=== PATIENT | female | born 1995 | race Caucasian/White ===

== ENCOUNTER 2017-12-25 14:07 | Inpatient (IN) | payer BC ==
[2017-12-25] MEDS ORDERED: cefTRIAXone\\ROCEPHIN 2 GM VIAL ONE (15:19)
[2017-12-25 15:36] LABS: Mean Corpuscular HGB CONC 33.3 g/dL (32.0-36.0); Mean Corpuscular Hemoglobin 32.3 pg (27.0-31.0); Mean Corpuscular Volume 97.1 fL (78.0-98.0); Mean Platelet Volume 8.1 fL (7.4-10.4); Platelet Count 217 thou/uL (130-400); RBC Distribution Width 10.8 % (11.5-14.5); Red Blood Cell (RBC) Count 4.01 mill/uL (4.20-5.40); White Blood Cell (WBC) Count 24.6 thou/uL (4.8-10.8)
[2017-12-25 15:36] LABS: Bilirubin Negative (Negative); Blood, Urine Small (Negative); Clarity CLOUDY (Clear); Glucose, Urine (Dipstick) Negative (Negative); Leukocyte Small (Negative); Nitrite Negative (Negative); Protein, Urine (Dipstick) 100 mg/dL (Neg-Trace); Specific Gravity, Urine 1.023 (1.002-1.036); pH, Urine 5.5 (5.0-9.0)
[2017-12-25 15:39] LABS: Bacteria/HPF Rare-Few HPF (None Seen); Hyaline Casts/LPF 7-10 HYALINE CAST LPF (0-3 Hyaline); Pathc Cast-AUWi Flag 1.01 (0-2.49); WBC/HPF 21-50 HPF (0-3)
[2017-12-25 15:54] LABS: Band 23 % (5-11); Lymphocytes 5 % (21-51); MDiff Complete? YES; Metamyelocyte 2 % (0-0); Monocytes 6 % (0-10); Neutrophil 64 % (42-75); PLT Morphology Comment Appears Adequate; RBC Morphology Normal
[2017-12-25 15:58] LABS: ALT (SGPT) Less than 7 U/L (8-55); AST (SGOT) 11 U/L (5-34); Albumin 4.2 g/dL (3.5-5.0); Alkaline Phosphatase 82 U/L (40-150); Anion Gap 16 mmol/L (10-20); BUN (Urea Nitrogen) 10 mg/dL (7.0-18.7); Bilirubin, Total 0.6 mg/dL (0.2-1.2); Calc. Creatinine Clearance 0 mL/min (70-130); Calcium 9.7 mg/dL (7.8-10.44); Carbon Dioxide 22 mmol/L (22-29); Chloride 100 mmol/L (98-107); Estimated GFR-MDRD 82; Globulin 3.8 g/dL (2.4-3.5); Glucose 108 mg/dL (70-105); Potassium 3.5 mmol/L (3.5-5.1); Sodium 134 mmol/L (136-145)
[2017-12-25] MEDS ORDERED: Acetaminophen 500 MG TAB ONE (16:12)
[2017-12-25 16:24] LABS: Pregnancy Test - Urine (BHCG) Negative (Negative); Pregu Control Background? CLEAR/WHITE (CLR/WHITE); Pregu Control Bar Appear? YES (CONTROL BAR); Specific Gravity 1.023 (1.002-1.036)
--- NOTE | 2017-12-25 17:12 | CT ---
CT ABDOMEN AND PELVIS WITHOUT CONTRAST: 12/25/17 HISTORY: Right sided flank pain. FINDINGS: Absence of oral and IV contrast reduces the sensitivity for the exam particularly for evaluation of s olid organs and bowel. The lung bases are clear. No free air or free fluid is seen in the abdomen or pelvis. No calcified ga llstones are identified. There are a couple of punctate calculi in the inferior pole of the left kidney. No calculi are seen i n the right kidney, either ureter or urinary bladder. No hydroureteronephrosis is noted on either jessie e. The appendix is normal. The uterus and ovaries are present. No acute osseous abnormalities are see n. IMPRESSION: Punctate nonobstructing left renal calculi. POS: [facility]
[2017-12-25] MEDS ORDERED: Senokot S 8.6-50 MG TAB PO PRN (18:23)
[2017-12-25 20:00] VITALS: BMI 22.8
[2017-12-25] MEDS: Sodium Chloride 0.9% 1,000 ML IV SCH (20:10)
[2017-12-25] MEDS: Famotidine 20 MG TAB PO SCH (20:59)
[2017-12-25] MEDS ORDERED: Vancomycin HCl 1.25 GM in Sodium Chloride 0.9% 250 ML 250 ML IVPB SCH (21:00)
[2017-12-25] MEDS: HYDROcodone/Acetaminophen 5/325 mg Tablet PO PRN (21:40)
[2017-12-26] MEDS: Acetaminophen 325 MG TAB PO PRN ×2 (01:02→15:27)
--- NOTE | 2017-12-26 03:16 | HP ---
REASON FOR ADMISSION: Sepsis, right-sided pyelonephritis. HISTORY OF PRESENT ILLNESS: Patient gives history of having very high fever for the last 3 days. It was 103 degrees. She has had a right lumbar area pain , which was 4/10 in intensity and was colicky in nature. No radiation of this pain. It would come and go for 15-20 minutes; for now, it has remained stable and is always there. She also developed headache which is frontal headache. She has been vomiting and feeling nauseated. She threw up four times yesterday and 3 times today already. Patient has been waking up soaking wet because of fever. She went to see her primary care physician at [facility] yesterday. She was given prescription for an antibiotic for urinary tract infection and was asked to come back and see her again in 24 hours if she is not feeling better. She went again to see her this morning and was asked to go to the emergency room. On arrival here, patient had a fever of 103, had a white count of 24,000 with 23% bands. PAST MEDICAL AND SURGICAL HISTORY: History of prior lithotripsies x2 in 2010, 2012 in [facility]. No other medical history or surgical history. CURRENT MEDICATIONS: She took 1 tablet of her antibiotic yesterday and Tylenol p.r.n. ALLERGIES: No known drug allergies. PERSONAL HISTORY: Patient uses vape. Does not abuse alcohol or drugs. She works at [employer]. FAMILY HISTORY: Both parents are healthy. Power of commercial real estate attorney is her mom. CODE STATUS: FULL. Last menstrual period was on 12/23. REVIEW OF SYSTEMS: The following complete review of systems was negative, unless otherwise mentioned in the HPI or below: Constitutional: Weight loss or gain, ability to conduct usual activities. Skin: Rash, itching. Eyes: Double vision, pain. ENT/Mouth: Nose bleeding, neck stiffness, pain, tenderness. Cardiovascular: Palpitations, dyspnea on exertion, orthopnea. Respiratory: Shortness of breath, wheezing, cough, hemoptysis, fever or night sweats. Gastrointestinal: Poor appetite, abdominal pain, heartburn, nausea, vomiting, constipation, or diarrhea. Genitourinary: Urgency, frequency, dysuria, nocturia. Musculoskeletal: Pain, swelling. Neurologic/Psychiatric: Anxiety, depression. Allergy/Immunologic: Skin rash, bleeding tendency. PHYSICAL EXAMINATION: GENERAL: Patient is a 22-year-old female who is currently not in any acute distress. VITAL SIGNS: Blood pressure 138/80, pulse 62 per minute, respiratory rate 18 per minute, temperature 99.3 degrees Fahrenheit, saturating 100% on room air. NECK: Supple, no elevated JVD. HEENT: Eyes, extraocular muscles intact. Pupils are reacting to light. Oral cavity, mucous membranes are dry. No exudates or congestion. CARDIOVASCULAR: S1, S2 heard. Regular rhythm. RESPIRATORY: Air entry 2+ bilateral. No rales or rhonchi. ABDOMEN: Soft, bowel sounds heard. There is tenderness in the right lumbar area. No rigidity or guarding. EXTREMITIES: No peripheral edema or calf tenderness. VASCULAR SYSTEM: Peripheral pulses 2+ bilateral, no ischemic ulcerations or gangrene. CENTRAL NERVOUS SYSTEM: No gross focal deficits noted. Patient is alert, awake , oriented well. PSYCHIATRIC: Patient's mood is euthymic. No hallucinations or delusions. LABORATORY AND X-RAY FINDINGS: CT of the abdomen and pelvis without contrast done showed nonobstructing left renal calculi. White count of 24, H&H 13 and 39 , platelet count 217 with 64% neutrophils and 23% bands. Electrolytes are stable. BUN 10, creatinine 0.8, glucose 108. Liver enzymes within normal limits. Albumin is 4.2. UA shows small leukocyte esterase, 21-50 wbcs', rare bacteria. CLINICAL IMPRESSION AND PLAN: Patient will be admitted to medical floor for sepsis and urinary tract infection. She will be on Rocephin and vancomycin for now. Blood and urine cultures have been obtained in the ER. Patient will be hydrated with normal saline at 100 mL per hour. She has received 2 liters IV fluid in the ER. We will follow up on the cultures. We will continue to closely monitor her on medical floor. [facility]
[2017-12-26] MEDS: Sodium Chloride 0.9% 1,000 ML IV SCH ×4 (04:30→20:49)
[2017-12-26 05:28] LABS: Anion Gap 10 mmol/L (10-20); BUN (Urea Nitrogen) 6 mg/dL (7.0-18.7); Calc. Creatinine Clearance 121 mL/min (70-130); Calcium 8.4 mg/dL (7.8-10.44); Carbon Dioxide 21 mmol/L (22-29); Chloride 106 mmol/L (98-107); Estimated GFR-MDRD Greater than 90; Glucose 93 mg/dL (70-105); Potassium 3.2 mmol/L (3.5-5.1); Sodium 134 mmol/L (136-145)
[2017-12-26 07:49] LABS: Band 15 % (5-11); Hemoglobin 10.4 g/dL (12.0-16.0); Lymphocytes 2 % (21-51); MDiff Complete? YES; Mean Corpuscular HGB CONC 32.8 g/dL (32.0-36.0); Mean Corpuscular Hemoglobin 31.9 pg (27.0-31.0); Mean Corpuscular Volume 97.2 fL (78.0-98.0); Mean Platelet Volume 8.4 fL (7.4-10.4); Monocytes 14 % (0-10); Neutrophil 67 % (42-75); PLT Morphology Comment Appears Adequate; Platelet Count 181 thou/uL (130-400); RBC Distribution Width 10.8 % (11.5-14.5); RBC Morphology Normal; Reactive Lymphocytes 2 % (0-10); Red Blood Cell (RBC) Count 3.25 mill/uL (4.20-5.40); White Blood Cell (WBC) Count 22.5 thou/uL (4.8-10.8)
[2017-12-26] MEDS: Enoxaparin Sodium 40 MG/0.4 ML SYRINGE SC SCH (07:53)
[2017-12-26] MEDS: HYDROcodone/Acetaminophen 5/325 mg Tablet PO PRN ×3 (07:54→20:59)
[2017-12-26] MEDS: Famotidine 20 MG TAB PO SCH ×2 (07:55→20:52)
[2017-12-26] MEDS: Vancomycin HCl 1 GM in Premix Bag 1 BAG IVPB SCH ×2 (07:56→20:47)
--- NOTE | 2017-12-26 14:05 | PDOC.PN ---
- Subjective Encounter Start Date: 12/26/17 Encounter Start Time: 13:00 Subjective: abd pain is better, no nausea -: is tolerating oral diet - Objective Resuscitation Status: Resuscitation Status FULL:Full Resuscitation MAR Reviewed: Yes Vital Signs & Weight: Vital Signs (12 hours) Temp Pulse Resp BP BP Pulse Ox 12/26/17 08:00 97.6 F 51 L 18 166/84 H 94 L 12/26/17 03:48 100.1 F H 102 H 90/56 L 97 12/26/17 02:08 103 F H Weight Weight 137 lb 1 oz Result Diagrams: 12/26/17 04:50 12/26/17 04:50 Phys Exam - Physical Examination HEENT: PERRLA, moist MMs Neck: no JVD, supple Respiratory: no wheezing, no rales Cardiovascular: RRR, no significant murmur Gastrointestinal: soft, non-tender, positive bowel sounds Musculoskeletal: no edema, pulses present Neurological: non-focal, moves all 4 limbs Psychiatric: normal affect, A&O x 3 Dx/Plan (1) Sepsis Code(s): A41.9 - SEPSIS, UNSPECIFIED ORGANISM Status: Acute Qualifiers: Sepsis type: sepsis due to unspecified organism Qualified Code(s): A41.9 - Sepsis, unspecified organism (2) UTI (urinary tract infection) Status: Acute Qualifiers: Urinary tract infection type: acute cystitis Hematuria presence: without hematuria Qualified Code(s): N30.00 - Acute cystitis without hematuria (3) h/o nephrolithiasis Status: Chronic Comment: prior lithotripsy - Plan tmax of 103 last 24hrs -: continue ceftriaxone and vanc, iv fluids -: await urine cs, to ambulate as tolerated -: prelim blood cs are -ve -: wbc is still around 20k * . Review of Systems - Medications/Allergies Allergies/Adverse Reactions: Allergies Allergy/AdvReac Type Severity Reaction Status Date / Time No Known Drug Allergies Allergy Verified 12/25/17 20:01 Medications: Current Medications Acetaminophen (Tylenol) 650 mg PO Q4H PRN PRN Reason: Headache/Fever/Mild Pain (1-3) Last Admin: 12/26/17 01:02 Dose: 650 mg Hydrocodone Bitart/Acetaminophen ([place] 5/325) 1 tab PO Q4H PRN PRN Reason: Moderate Pain (4-6) Last Admin: 12/26/17 12:29 Dose: 1 tab Enoxaparin Sodium (Lovenox) 40 mg SC 0900 [facility] Last Admin: 12/26/17 07:53 Dose: 40 mg Famotidine (Pepcid) 20 mg PO BID [facility] Last Admin: 12/26/17 07:55 Dose: 20 mg Ceftriaxone Sodium 2 gm/ (Sodium Chloride) 100 mls @ 200 mls/hr IVPB Q24HR DON Sodium Chloride (Normal Saline 0.9%) 1,000 mls @ 100 mls/hr IV .Q10H [facility] Last Admin: 12/26/17 07:57 Dose: 1,000 mls Vancomycin HCl 1 gm/ Device 200 mls @ 200 mls/hr IVPB Q12HR [facility] Last Admin: 12/26/17 07:56 Dose: 200 mls Miscellaneous Medication (Pharmacy To Dose) 1 each IVPB PRN PRN PRN Reason: Pharmacy to dose Senna/Docusate Sodium (Senokot S) 2 tab PO BIDPRN PRN PRN Reason: Constipation Sodium Chloride (Flush - Normal Saline) 10 ml IVF Q12HR [facility] Last Admin: 12/26/17 07:57 Dose: Not Given Sodium Chloride (Flush - Normal Saline) 10 ml IVF PRN PRN PRN Reason: Saline Flush
[2017-12-26] MEDS: cefTRIAXone\\ROCEPHIN 2 GM in Sodium Chloride 0.9% 100 ML IVPB SCH (15:29)
[2017-12-26] MEDS ORDERED: Ibuprofen 200 MG TAB PO PRN (17:50)
[2017-12-27 04:41] LABS: #Basophils 0.1 thou/uL (0.0-0.2); #Eosinphils 0.1 thou/uL (0.0-0.7); #Lymphocytes 1.8 thou/uL (1.20-3.40); #Monocytes 1.7 thou/uL (0.11-0.59); #Neutrophils 12.1 thou/uL (1.40-6.50); %Basophils 0.3 % (0.0-1.0); %Eosinophils 0.6 % (0.0-10.0); %Lymphocytes 11.2 % (21.0-51.0); %Monocytes 11.1 % (0.0-10.0); %Neutrophils 76.7 % (42.0-75.0); Hemoglobin 10.4 g/dL (12.0-16.0); Mean Corpuscular HGB CONC 33.8 g/dL (32.0-36.0); Mean Corpuscular Hemoglobin 32.9 pg (27.0-31.0); Mean Corpuscular Volume 97.2 fL (78.0-98.0); Mean Platelet Volume 8.4 fL (7.4-10.4); Platelet Count 187 thou/uL (130-400); RBC Distribution Width 11.1 % (11.5-14.5); Red Blood Cell (RBC) Count 3.16 mill/uL (4.20-5.40); White Blood Cell (WBC) Count 15.7 thou/uL (4.8-10.8)
[2017-12-27] MEDS: Acetaminophen 325 MG TAB PO PRN ×2 (08:11→15:13)
[2017-12-27] MEDS: Famotidine 20 MG TAB PO SCH ×2 (08:12→20:36)
[2017-12-27] MEDS: Enoxaparin Sodium 40 MG/0.4 ML SYRINGE SC SCH (08:17)
[2017-12-27 08:25] LABS: Vancomycin, Trough 6.8 ug/mL
--- NOTE | 2017-12-27 11:17 | PDOC.PN ---
- Subjective Encounter Start Date: 12/27/17 Encounter Start Time: 10:30 Subjective: feels better, is eating well -: amb in room - Objective Resuscitation Status: Resuscitation Status FULL:Full Resuscitation MAR Reviewed: Yes Vital Signs & Weight: Vital Signs (12 hours) Temp Pulse Resp BP Pulse Ox 12/27/17 08:00 100.4 F H 102 H 18 139/89 98 12/26/17 23:32 97.7 F Weight Admit Weight 137 lb 1 oz Weight 137 lb 1 oz I&O: 12/26/17 12/27/17 12/28/17 06:59 06:59 06:59 Intake Total 1680 Balance 1680 Result Diagrams: 12/27/17 03:52 12/26/17 04:50 Phys Exam - Physical Examination HEENT: PERRLA, moist MMs Neck: no JVD, supple Respiratory: no wheezing, no rales Cardiovascular: RRR, no significant murmur Gastrointestinal: soft, non-tender, positive bowel sounds Musculoskeletal: no edema, pulses present Neurological: non-focal, moves all 4 limbs Psychiatric: normal affect, A&O x 3 Dx/Plan (1) Sepsis Code(s): A41.9 - SEPSIS, UNSPECIFIED ORGANISM Status: Acute Qualifiers: Sepsis type: sepsis due to unspecified organism Qualified Code(s): A41.9 - Sepsis, unspecified organism (2) UTI (urinary tract infection) Status: Acute Qualifiers: Urinary tract infection type: acute cystitis Hematuria presence: without hematuria Qualified Code(s): N30.00 - Acute cystitis without hematuria (3) h/o nephrolithiasis Status: Chronic Comment: prior lithotripsy - Plan is on ceftriaxone -: dc iv fluids after current bag -: urine cs is contaminated -: no fever last 24hrs, wbc is down to 15k now and no bands -: dc plan in am on levaquin * . Review of Systems - Medications/Allergies Allergies/Adverse Reactions: Allergies Allergy/AdvReac Type Severity Reaction Status Date / Time No Known Drug Allergies Allergy Verified 12/25/17 20:01 Medications: Current Medications Acetaminophen (Tylenol) 650 mg PO Q4H PRN PRN Reason: Headache/Fever/Mild Pain (1-3) Last Admin: 12/27/17 08:11 Dose: 650 mg Hydrocodone Bitart/Acetaminophen ([place] 5/325) 1 tab PO Q4H PRN PRN Reason: Moderate Pain (4-6) Last Admin: 12/26/17 20:59 Dose: 1 tab Enoxaparin Sodium (Lovenox) 40 mg SC 0900 [facility] Last Admin: 12/27/17 08:17 Dose: Not Given Famotidine (Pepcid) 20 mg PO BID [facility] Last Admin: 12/27/17 08:12 Dose: 20 mg Ceftriaxone Sodium 2 gm/ (Sodium Chloride) 100 mls @ 200 mls/hr IVPB Q24HR [facility] Last Admin: 12/26/17 15:29 Dose: 100 mls Sodium Chloride (Normal Saline 0.9%) 1,000 mls @ 100 mls/hr IV .Q10H [facility] Last Admin: 12/26/17 20:49 Dose: 1,000 mls Ibuprofen (Motrin) 400 mg PO TID PRN PRN Reason: FEVER > 101 Last Admin: 12/26/17 18:01 Dose: 400 mg Senna/Docusate Sodium (Senokot S) 2 tab PO BIDPRN PRN PRN Reason: Constipation Sodium Chloride (Flush - Normal Saline) 10 ml IVF Q12HR [facility] Last Admin: 12/27/17 08:12 Dose: 10 ml Sodium Chloride (Flush - Normal Saline) 10 ml IVF PRN PRN PRN Reason: Saline Flush
[2017-12-27] MEDS: cefTRIAXone\\ROCEPHIN 2 GM in Sodium Chloride 0.9% 100 ML IVPB SCH (15:12)
[2017-12-27] MEDS: Sodium Chloride 0.9% 1,000 ML IV SCH (18:38)
[2017-12-27] MEDS ORDERED: Melatonin 3 MG TAB PO PRN (20:39)
[2017-12-28 00:24] VITALS: TEMP 98.2
[2017-12-28 06:03] LABS: Band 4 % (5-11); Eosinophils 1 % (0-10); Hemoglobin 11.5 g/dL (12.0-16.0); Lymphocytes 18 % (21-51); MDiff Complete? YES; Mean Corpuscular HGB CONC 33.9 g/dL (32.0-36.0); Mean Corpuscular Hemoglobin 32.7 pg (27.0-31.0); Mean Corpuscular Volume 96.4 fL (78.0-98.0); Mean Platelet Volume 8.8 fL (7.4-10.4); Monocytes 13 % (0-10); Neutrophil 64 % (42-75); PLT Morphology Comment Appears Adequate; Platelet Count 295 thou/uL (130-400); RBC Distribution Width 11.1 % (11.5-14.5); RBC Morphology Normal; Red Blood Cell (RBC) Count 3.52 mill/uL (4.20-5.40); White Blood Cell (WBC) Count 9.3 thou/uL (4.8-10.8)
[2017-12-28] MEDS: Enoxaparin Sodium 40 MG/0.4 ML SYRINGE SC SCH (08:30)
[2017-12-28] MEDS: Famotidine 20 MG TAB PO SCH (08:30)
[2017-12-28] MEDS: Acetaminophen 325 MG TAB PO PRN (08:33)
[2017-12-28 08:34] VITALS: BP 124/82
--- NOTE | 2017-12-28 12:28 | PDOC.PN ---
- Subjective Encounter Start Date: 12/28/17 Encounter Start Time: 08:30 Subjective: feels good, eating well, no fever or chills -: is amb in room - Objective Resuscitation Status: Resuscitation Status FULL:Full Resuscitation MAR Reviewed: Yes Vital Signs & Weight: Vital Signs (12 hours) Temp Pulse Resp BP Pulse Ox 12/28/17 08:00 98.2 F 72 16 124/82 98 Weight Admit Weight 137 lb 1 oz Weight 137 lb 1 oz I&O: 12/27/17 12/28/17 12/29/17 06:59 06:59 06:59 Intake Total 1680 490 Balance 1680 490 Result Diagrams: 12/28/17 04:06 12/26/17 04:50 Phys Exam - Physical Examination HEENT: PERRLA, moist MMs Neck: no JVD, supple Respiratory: no wheezing, no rales Cardiovascular: RRR, no significant murmur Gastrointestinal: soft, non-tender, no distention, positive bowel sounds Musculoskeletal: no edema, pulses present Neurological: non-focal, moves all 4 limbs Psychiatric: normal affect, A&O x 3 Dx/Plan (1) Sepsis Code(s): A41.9 - SEPSIS, UNSPECIFIED ORGANISM Status: Resolved Qualifiers: Sepsis type: sepsis due to unspecified organism Qualified Code(s): A41.9 - Sepsis, unspecified organism (2) UTI (urinary tract infection) Status: Acute Qualifiers: Urinary tract infection type: acute cystitis Hematuria presence: without hematuria Qualified Code(s): N30.00 - Acute cystitis without hematuria (3) h/o nephrolithiasis Status: Chronic Comment: prior lithotripsy - Plan wbc is normal this am, no fever last 36hrs -: levaquin for 8 days -: to drink atleast 2 liters water, no soda. -: dc pt home * .
--- NOTE | 2017-12-29 13:51 | DIS ---
DATE OF ADMISSION: 12/25/2017 DATE OF DISCHARGE: 12/28/2017 DISCHARGE DISPOSITION: To home. PRIMARY DISCHARGE DIAGNOSES: 1. Sepsis with urinary tract infection/pyelonephritis. 2. Prior history of nephrolithiasis. PROCEDURES DONE DURING HOSPITALIZATION: Patient had CT stone protocol done, which showed punctate no nobstructing left renal calculi. Blood cultures x2, no growth. Urine culture was contaminated. Had a white count of 24,000. Discharge white count of 9.3. Patient had 23% bands on the day of admissi on, H and H 11 and 34, platelet count 295. Discharge BUN and creatinine 6 and 0.7. Urine test was negative. DISCHARGE MEDICATIONS: Patient to continue Levaquin 500 mg p.o. daily for another 8 days. ALLERGIES: No known drug allergies. DISCHARGE PLAN: Patient to follow up with primary care physician in 1 week. BRIEF COURSE DURING HOSPITALIZATION: Patient initially came on 12/25/2017 to the emergency room with complaints of fever, chills, and right lumbar area pain. She had a white count of 24,000 with 23% b ands and UA was suspicious for UTI. The patient had fever of 103 on admission. Waters cultures were ob tained and patient was on broad-spectrum antibiotics initially. She was also gently hydrated. The p atient has done remarkably well with IV antibiotics and has been transitioned to Levaquin. Her urine culture was contaminated. Blood cultures x2 did not grow any organism. Prior to discharge, she is ambulating and eating well. She has not had any fever for the last 48 hours now. She needs to follo w up with primary care physician in 1 week. Please see a [id number] documentation for the day of d ischarge on [employer].
== END 2017-12-28 12:30 | disposition home or self-care (01) | DRG 872 ==
LOC: ERS 14:07 → T4-B 18:57
PROVIDERS: ADMIT Internal Medicine; ATTEND Internal Medicine
DX: A41.9 Sepsis, unspecified organism (principal); N10 Acute pyelonephritis; Z87.442 Personal history of urinary calculi
CPT/HCPCS: 36415; 74176; 80048; 80053; 80202; 81003; 81015; 81025; 85025; 87040; 87086; 96361; 96365; 99406; A4216; J0696; J1650; J3370; J7050